=== PATIENT | male | born 1980 | race Caucasian/White ===

== ENCOUNTER 2020-07-20 17:44 | Emergency (ER) | payer BC ==
[2020-07-20 18:40] LABS: Absolute Lymphocytes (CBC) 1.9 K/uL (0.7-4.9); Basophils % 0.6 % (0-1.3); Hematocrit 48.9 % (39.6-49.0); Lymphocytes % 18.4 % (15.3-44.8); RBC Red Blood Cell Count 5.78 M/uL (4.33-5.43)
--- NOTE | 2020-07-20 18:52 | RAD REPORT ---
EXAM DESCRIPTION: RAD - Chest Single View - 07/20/2020 6:14 pm CLINICAL HISTORY: DYSPNEA COMPARISON: None TECHNIQUE: AP portable chest image was obtained 07/20/2020 6:14 pm . FINDINGS: Lungs are clear. Heart and vasculature are normal. No measurable pleural effusion and no p neumothorax. No acute bony abnormality seen. No acute aortic findings suspected. IMPRESSION: No acute cardiopulmonary process.
[2020-07-20 19:10] LABS: Protime INR 1.01
[2020-07-20] MEDS ORDERED: NA CHLORIDE 0.9% 1,000 ML ONE (19:28)
[2020-07-20 19:30] LABS: ALT/SGPT 48 U/L (12-78); AST/SGOT 25 U/L (15-37); Albumin 3.7 g/dL (3.4-5.0); Alkaline Phosphatase 71 U/L (45-117); BUN Blood Urea Nitrogen 9 mg/dL (7-18); Bicarbonate 24 mmol/L (21-32); Bilirubin Direct < 0.1 mg/dL (0-0.2); Bilirubin Total 0.3 mg/dL (0.2-1.0); Glucose Level 96 mg/dL (74-106); Magnesium 2.3 mg/dL (1.8-2.4); NT PRO-BNP 17 pg/mL (<125); Potassium 3.4 mmol/L (3.5-5.1); Protein, Total 7.8 g/dL (6.4-8.2); Sodium Level 139 mmol/L (136-145); Troponin (Emerg Dept Use Only) < 0.02 ng/mL (0.0-0.045)
--- NOTE | 2020-07-20 19:50 | EDPHYS ---
Physician Documentation [facility] Name: Cristóbal Goode Age: 40 yrs Sex: Male : 1980 Arrival Date: 07/20/2020 Time: 17:48 Bed 19 Private MD: ED Physician aGlo Cuadra HPI: 07/20 18:57 This 40 yrs old Male presents to ER via Ambulatory with complaints of kb Shortness Of Breath. 18:57 The patient or guardian reports cough, that is intermittent, described as moderate, kb with no sputum, difficulty breathing. Onset: The symptoms/episode began/occurred 1 month(s) ago. Severity of symptoms: At their worst the symptoms were moderate, in the emergency department the symptoms are unchanged. Modifying factors: The symptoms are alleviated by nothing, the symptoms are aggravated by nothing. Associated signs and symptoms: The patient has no apparent associated signs or symptoms. The patient has not experienced similar symptoms in the past. The patient has not recently seen a physician. Pt reports cough and intermittent shortness of breath during coughing fits for 1 month. Reports history of asthma. States he was at the beach today, had a coughing fit that caused him to pass out for 30 seconds. States EMS came and checked his vitals and they were all wnl. States he continued hanging out at the beach, but had a feeling like he was going to pass out again so he came in to get checked out. States he has been at the beach all day and has had about 5-6 beers since noon. . Historical: - Allergies: 17:55 No Known Allergies; ll1 - PMHx: 17:55 High Cholesterol; Hypertension; seasonal allergy; ll1 - PSHx: 17:55 testicle surgery as a child; ll1 - Immunization history:: Flu vaccine is not up to date. - Social history:: Smoking status: Patient denies any tobacco usage or history of. Patient uses alcohol, only on a social basis. Patient/guardian denies using street drugs. ROS: 18:56 Constitutional: Negative for fever, chills, and weight loss, Neck: Negative for injury, kb pain, and swelling, Cardiovascular: Negative for chest pain, palpitations, and edema, Abdomen/GI: Negative for abdominal pain, nausea, vomiting, diarrhea, and constipation, Back: Negative for injury and pain, MS/Extremity: Negative for injury and deformity, Skin: Negative for injury, rash, and discoloration. 18:56 Respiratory: Positive for cough, shortness of breath, Negative for dyspnea on exertion, hemoptysis, orthopnea, pleurisy, sputum production, wheezing. 18:56 Neuro: Positive for syncope, near syncope. Exam: 18:56 Constitutional: This is a well developed, well nourished patient who is awake, alert, kb and in no acute distress. Head/Face: Normocephalic, atraumatic. Chest/axilla: Normal chest wall appearance and motion. Nontender with no deformity. No lesions are appreciated. Cardiovascular: Regular rate and rhythm with a normal S1 and S2. No gallops, murmurs, or rubs. Normal PMI, no JVD. No pulse deficits. Respiratory: Lungs have equal breath sounds bilaterally, clear to auscultation and percussion. No rales, rhonchi or wheezes noted. No increased work of breathing, no retractions or nasal flaring. Abdomen/GI: Soft, non-tender, with normal bowel sounds. No distension or tympany. No guarding or rebound. No evidence of tenderness throughout. Skin: Warm, dry with normal turgor. Normal color with no rashes, no lesions, and no evidence of cellulitis. MS/ Extremity: Pulses equal, no cyanosis. Neurovascular intact. Full, normal range of motion. Neuro: Awake and alert, GCS 15, oriented to person, place, time, and situation. Cranial nerves II-XII grossly intact. Motor strength 5/5 in all extremities. Sensory grossly intact. Cerebellar exam normal. Normal gait. 18:56 ECG was reviewed by the Attending Physician. Vital Signs: 17:52 BP 136 / 101; Pulse 114; Resp 18; Temp 98.2; Pulse Ox 95% ; Weight 104.33 kg; Height 5 ll1 ft. 11 in. (180.34 cm); Pain 0/10; 18:40 BP 142 / 79 LA Supine (auto/lg); Pulse 101; Pulse Ox 96% on R/A; jp3 18:42 BP 128 / 70 LA Sitting (auto/lg); Pulse 114; Pulse Ox 96% on R/A; jp3 18:44 BP 142 / 86 LA Standing (auto/lg); Pulse 110; Pulse Ox 96% on R/A; jp3 19:47 BP 107 / 86; Pulse 101; Resp 20; Pulse Ox 100% on R/A; aj1 21:05 BP 137 / 85; Pulse 92; Resp 18; Pulse Ox 99% on R/A; aj1 17:52 Body Mass Index 32.08 (104.33 kg, 180.34 cm) ll1 MDM: 17:57 Patient medically screened. kb 18:57 Data reviewed: vital signs, nurses notes. Data interpreted: Pulse oximetry: on room air kb is 96 %. Interpretation: normal. 19:49 Counseling: I had a detailed discussion with the patient and/or guardian regarding: the kb historical points, exam findings, and any diagnostic results supporting the discharge/admit diagnosis, lab results, radiology results, the need for outpatient follow up, a family practitioner, to return to the emergency department if symptoms worsen or persist or if there are any questions or concerns that arise at home. 07/20 17:58 Order name: Basic Metabolic Panel; Complete Time: 19:35 kb 07/20 17:58 Order name: CBC with Diff; Complete Time: 18:41 kb 07/20 17:58 Order name: LFT's; Complete Time: 19:35 kb 07/20 17:58 Order name: Magnesium; Complete Time: 19:35 kb 07/20 17:58 Order name: NT PRO-BNP; Complete Time: 19:35 kb 07/20 17:58 Order name: PT-INR; Complete Time: 19:14 kb 07/20 17:58 Order name: Troponin (emerg Dept Use Only); Complete Time: 19:35 kb 07/20 17:58 Order name: XRAY Chest (1 view); Complete Time: 18:52 kb 07/20 17:58 Order name: EKG; Complete Time: 17:59 kb 07/20 17:58 Order name: Cardiac monitoring; Complete Time: 18:37 kb 07/20 18:38 Order name: D-Dimer; Complete Time: 19:14 EDMS 07/20 19:59 Order name: COVID-19 sg 07/20 17:58 Order name: EKG - Nurse/Tech; Complete Time: 18:37 kb 07/20 17:58 Order name: IV Saline Lock; Complete Time: 18:38 kb 07/20 17:58 Order name: Labs collected and sent; Complete Time: 18:38 kb 07/20 17:58 Order name: O2 Per Protocol; Complete Time: 18:38 kb 07/20 17:58 Order name: O2 Sat Monitoring; Complete Time: 18:38 kb 07/20 18:05 Order name: Orthostatics; Complete Time: 19:04 kb EC:56 Rate is 109 beats/min. Rhythm is regular. QRS [place] is Normal. HI interval is normal at kb 156 msec. QRS interval is normal at 78 msec. QT interval is normal at 304 msec. Administered Medications: 19:42 Drug: NS 0.9% 1000 ml Route: IV; Rate: 100 ml/hr; Site: right antecubital; aj1 21:02 Follow up: IV Status: Completed infusion; IV Intake: 1000ml aj1 Disposition: 07/20/20 19:49 Discharged to Home. Impression: Cough, Syncope and collapse. - Condition is Stable. - Discharge Instructions: Syncope, [place], Cough, Adult, Zetl-[id number]. - Medication Reconciliation Form, Thank You Letter, Antibiotic Education, Prescription Opioid Use form. - Follow up: Emergency Department; When: As needed; Reason: Worsening of condition. Follow up: Private Physician; When: 2 - 3 days; Reason: Recheck today's complaints, Continuance of care, Re-evaluation by your physician. Addendum: 07/22/2020 10:52 Co-signature as Attending Physician, Galo Cuadra MD I agree with the assessment and c crocker plan of care. Signatures: Dispatcher [employer] [facility] Leatha Kellogg, FLAMER AFTER LASTING-C FLAMER AFTER LASTING-Karissa Yun RN RN aj1 Galo Cuadra MD MD cha Lewis, Lynsay, RN RN ll1 Corrections: (The following items were deleted from the chart) 07/20 18:37 18:00 D-DIMER+COAG.LAB.BRZ ordered. [facility] 18:57 18:56 Neuro: Positive for near syncope, kb kb 21:06 19:49 07/20/2020 19:49 Discharged to Home. Impression: Cough; Syncope and collapse. aj1 Condition is Stable. Forms are Medication Reconciliation Form, Thank You Letter, Antibiotic Education, Prescription Opioid Use. Follow up: Emergency Department; When: As needed; Reason: Worsening of condition. Follow up: Private Physician; When: 2 - 3 days; Reason: Recheck today's complaints, Continuance of care, Re-evaluation by your physician. kb
--- NOTE | 2020-07-20 19:50 | ER ---
Nurse's Notes [facility] Name: Cristóbal Goode Age: 40 yrs Sex: Male : 1980 Arrival Date: 07/20/2020 Time: 17:48 Bed 19 Private MD: Diagnosis: Cough;Syncope and collapse Presentation: 07/20 17:52 Chief complaint: Patient states: Cough for over 1 month. Was at the beach today and ll1 passed out. Another near syncope event about 30 minutes after. Drank 4-5 beers today. Coronavirus screen: Client denies travel out of the [place] in the last 14 days. cough unrelated to allergies, difficulty breathing, headache, Client presents with at least one sign or symptom that may indicate coronavirus-19. Standard/surgical mask placed on the client. Ebola Screen: Patient denies travel to an Ebola-affected area in the 21 days before illness onset. Initial Sepsis Screen: Does the patient meet any 2 criteria? HR > 90 bpm. Risk Assessment: Do you want to hurt yourself or someone else? Patient reports no desire to harm self or others. Onset of symptoms was July 20, 2020. 17:52 Method Of Arrival: Ambulatory ll1 17:52 Acuity: STEPHANIE 3 ll1 Historical: - Allergies: 17:55 No Known Allergies; ll1 - PMHx: 17:55 High Cholesterol; Hypertension; seasonal allergy; ll1 - PSHx: 17:55 testicle surgery as a child; ll1 - Immunization history:: Flu vaccine is not up to date. - Social history:: Smoking status: Patient denies any tobacco usage or history of. Patient uses alcohol, only on a social basis. Patient/guardian denies using street drugs. Screenin:00 Abuse screen: Denies threats or abuse. Denies injuries from another. Nutritional aj1 screening: No deficits noted. Tuberculosis screening: No symptoms or risk factors identified. 21:05 Fall Risk Fall in past 12 months (25 points). No secondary diagnosis (0 pts). No IV (0 aj1 pts). Ambulatory Aid- None/Bed Rest/Nurse Assist (0 pts). Gait- Normal/Bed Rest/Wheelchair (0 pts) Mental Status- Oriented to own ability (0 pts). Total Hodges Fall Scale indicates Low Risk Score (25-44 pts). As available Patient and Family Educated on Fall Prevention Program and strategies. Assessment: 18:00 General: Appears in no apparent distress. comfortable, Behavior is calm, cooperative, aj1 appropriate for age. Pain: Denies pain. Neuro: Level of Consciousness is awake, alert, obeys commands, Oriented to person, place, time, situation. Cardiovascular: Reports syncope, Denies chest pain, Heart tones S1 S2 present Patient's skin is warm and dry. Rhythm is irregular. Respiratory: Reports cough that is persistent for the past month Airway is patent Respiratory effort is even, unlabored, Respiratory pattern is regular, symmetrical, Breath sounds are clear bilaterally. GI: No signs and/or symptoms were reported involving the gastrointestinal system. : No signs and/or symptoms were reported regarding the genitourinary system. EENT: No signs and/or symptoms were reported regarding the EENT system. Derm: No signs and/or symptoms reported regarding the dermatologic system. Skin is pink, warm \T\ dry. normal. Musculoskeletal: No signs and/or symptoms reported regarding the musculoskeletal system. Circulation, motion, and sensation intact. 19:08 Reassessment: Patient appears in no apparent distress at this time. No changes from aj1 previously documented assessment. Patient and/or family updated on plan of care and expected duration. Pain level reassessed. Patient is alert, oriented x 3, equal unlabored respirations, skin warm/dry/pink. 19:54 Reassessment: Discharge pending completion of IV fluids, rate increased to bolus per aj1 orders by Nicky Kellogg NP. 21:05 Reassessment: Patient appears in no apparent distress at this time. No changes from aj1 previously documented assessment. Patient and/or family updated on plan of care and expected duration. Pain level reassessed. Patient is alert, oriented x 3, equal unlabored respirations, skin warm/dry/pink. Vital Signs: 17:52 BP 136 / 101; Pulse 114; Resp 18; Temp 98.2; Pulse Ox 95% ; Weight 104.33 kg; Height 5 ll1 ft. 11 in. (180.34 cm); Pain 0/10; 18:40 BP 142 / 79 LA Supine (auto/lg); Pulse 101; Pulse Ox 96% on R/A; jp3 18:42 BP 128 / 70 LA Sitting (auto/lg); Pulse 114; Pulse Ox 96% on R/A; jp3 18:44 BP 142 / 86 LA Standing (auto/lg); Pulse 110; Pulse Ox 96% on R/A; jp3 19:47 BP 107 / 86; Pulse 101; Resp 20; Pulse Ox 100% on R/A; aj1 21:05 BP 137 / 85; Pulse 92; Resp 18; Pulse Ox 99% on R/A; aj1 17:52 Body Mass Index 32.08 (104.33 kg, 180.34 cm) ll1 ED Course: 17:48 Patient arrived in ED. mr 17:54 Triage completed. ll1 17:55 Arm band placed on Patient placed in an exam room, on a stretcher. ll1 17:57 [facility] Kellogg [facility]C [facility] kb 17:57 Galo Cuadra MD is Attending Physician. kb 17:58 Karissa Bernal RN is Primary Nurse. aj1 18:00 Patient has correct armband on for positive identification. Bed in low position. Call aj1 light in reach. Side rails up X 1. roll carrier on. Pulse ox on. NIBP on. 18:00 No provider procedures requiring assistance completed. aj1 18:14 XRAY Chest (1 view) In Process Unspecified. EDMS 18:30 Inserted saline lock: 20 gauge in right antecubital area, using aseptic technique. aj1 Blood collected. 20:07 Pt swabbed for COVID-19. jp3 21:05 IV discontinued, intact, bleeding controlled, No redness/swelling at site. Pressure aj1 dressing applied. Administered Medications: 19:42 Drug: NS 0.9% 1000 ml Route: IV; Rate: 100 ml/hr; Site: right antecubital; aj1 21:02 Follow up: IV Status: Completed infusion; IV Intake: 1000ml aj1 Intake: 21:02 IV: 1000ml; Total: 1000ml. aj1 Outcome: 19:49 Discharge ordered by . kb 21:06 Discharged to home ambulatory. aj1 21:06 Condition: good 21:06 Discharge instructions given to patient, Instructed on discharge instructions, follow up and referral plans. Demonstrated understanding of instructions, follow-up care. 21:06 Patient left the ED. aj1 Addendum: 07/23/2020 16:28 Addendum: COVID-19 Result: Negative result given to RN to notify pt. Contacted by: s s Magalie Smirch, RN. Notified pt of negative COVID 19 swab results. Pt advised that even with a negative test result they should remain in isolation until symptom free for 3 days without medication. Pt also advised to return to the ED for worsening symptoms. Signatures: Dispatcher [employer] [facility] Leatha Kellogg, STONEHAND-C DORA-Karissa Yun RN RN aj1 Radhika Esqueda mr Magalie Ashton RN RN Jd Burleson 3 Jaycob Lockhart RN RN ll1 Corrections: (The following items were deleted from the chart) 07/20 21:03 19:54 Reassessment: Discharge pending completion of IV fluids aj1 aj1
[2020-07-20 21:35] VITALS: TEMP 98.2
[2020-07-20 21:41] VITALS: BP 137/85; O2SAT 99
--- NOTE | 2020-07-21 09:45 | EKG ---
Test Date: 2020-07-20 Test Time: 18:19:30 Electroformer: CHAYO MEASUREMENT RESULTS: Intervals: Rate: 109 OK: 156 QRSD: 78 QT: 304 QTc: 409 [place]: P: 36 OK: 156 QRS: 61 T: 14 INTERPRETIVE STATEMENTS: Sinus tachycardia Possible Inferior infarct, age undetermined Abnormal ECG No previous ECG available for comparison Electronically Signed On 07-21-20 09:44:07 CDT by Sammy Jenkins
== END 2020-07-20 21:06 | disposition home or self-care (01) ==
LOC: ER 17:44
DX: R05 Cough (principal); R55 Syncope and collapse; I10 Essential (primary) hypertension
CPT/HCPCS: 93005; 85025; 80048; 36415; 83735; 85610; 85379; 80076; 84484; 83880; 71045; 96360; 99284; U0002; J7030